=== PATIENT | female | born 1955 ===

== ENCOUNTER 2017-02-24 07:30 | Day surgery (SDC) | payer OTHER ==
[2017-02-24] MEDS ORDERED: Lactated Ringer's 500 ML IV ONE (07:41)
[2017-02-24 08:04] VITALS: TEMP 96.9; O2SAT 100
[2017-02-24] MEDS ORDERED: Propofol 10 mg/ml Inj (20 ML) ONE (08:52)
[2017-02-24] MEDS ORDERED: Midazolam 2 MG/2 ML VIAL ONE (08:53)
[2017-02-24 09:36] VITALS: BP 121/82; PULSE 65; RESP 13
== END 2017-02-24 10:00 | disposition home or self-care (01) ==
LOC: H.ENDO 07:30
PROVIDERS: ATTEND Internal Medicine Gastroenterology
DX: Z12.11 Encounter for screening for malignant neoplasm of colon (principal); I10 Essential (primary) hypertension; E53.8 Deficiency of other specified B group vitamins; K57.30 Diverticulosis of large intestine without perforation or abscess without bleeding; K64.1 Second degree hemorrhoids